=== PATIENT | female | born 1970 | race Caucasian/White ===

== ENCOUNTER 2021-02-05 13:50 | Outpatient (CLI) | payer OTHER ==
--- NOTE | 2021-02-05 15:46 | MRI Report ---
PROCEDURE: Lumbar Spine W/O INDICATIONS: LBP TECHNIQUE: Noncontrast sagittal T1 spin echo and T2 fast echo, sagittal STIR, axial T1 and T2 fast spin echo thr ough the lumbar spine. In cases with scoliosis, additional coronal T2 fast spin echo may be performe d. COMPARISON: None. FINDINGS: Image quality: Excellent. Alignment and Curvature: No plain films are available for comparison. Thus, for numbering purposes, 5 lumbar type vertebral bodies will be presumed for the current report. This should be confirmed with plain film correlation prior to any lumbar spinal intervention. There is loss of normal lumbar lordo sis. Bone Marrow: Marrow is of normal overall signal. No acute vertebral body compression fractures. Mi ld reactive signal within the endplates adjacent to the L2-L3, L3-L4, and L4-L5 intervertebral discs. Spinal Cord: Conus medullaris terminates at the upper L2 level. Visualized cord demonstrates normal signal and size. Paraspinous Soft Tissues: No paravertebral masses. T12-L1: Normal in appearance. L1-L2: Normal in appearance. L2-L3: Mild disc desiccation. Mild facet and ligament flavum hypertrophy. Mild epidural lipomatosi s. Mild canal stenosis. Mild bilateral foraminal stenosis. L3-L4: Mild disc desiccation and diffuse disc bulge with superimposed left paracentral disc extrusi on which extends superiorly within the anterior epidural space, measuring roughly 25 mm craniocaudal by 9 mm anteroposterior by 13 mm transverse. Mild facet and ligament flavum hypertrophy. Mild epidura l lipomatosis. Severe canal stenosis. Severe left and moderate right foraminal stenosis. Left L3 nerv e root compression. L4-L5: Mild disc desiccation and diffuse disc bulge with superimposed broad-based left far lateral protrusion. Mild facet and ligament flavum hypertrophy. Mild epidural lipomatosis. Mild canal stenosi s. Moderate left greater than right foraminal stenosis. L5-S1: Mild disc height loss and desiccation. Mild diffuse disc bulge. Mild facet and ligament flav um hypertrophy. Mild canal stenosis. Severe left and moderate right foraminal stenosis. Left L5 nerve root compression. IMPRESSION: 1. Multilevel lumbar 2. Multilevel canal stenoses, worst at L3-L4 where there is severe canal stenosis. 3. Multilevel foraminal stenoses, worst at L3-L4 and L5-S1 where there is associated intraforaminal n erve root compression. Recommend correlation with clinical symptoms to ascertain relevance of these f indings. Reviewed by: Chaparro Newberry MD on 02/05/2021 3:44 PM PST Approved by: Chaparro Newberry MD on 02/05/2021 3:44 PM PST Station ID: [id number]
== END 2021-02-05 13:51 | disposition home or self-care (01) ==
LOC: DI 13:50
PROVIDERS: ATTEND Physician Assistant
DX: M51.26 Other intervertebral disc displacement, lumbar region (principal); M48.061 Spinal stenosis, lumbar region without neurogenic claudication

== ENCOUNTER 2021-05-07 17:45 | Outpatient (CLI) | payer OTHER | END 2021-05-07 17:46 | disposition home or self-care (01) | LOC: LAB 17:45 | PROVIDERS: ATTEND Nurse Practitioner | DX: Z20.822 Contact with and (suspected) exposure to COVID-19 (principal) ==